=== PATIENT | female | born 1965 | race Caucasian/White ===

== ENCOUNTER 2018-09-13 08:36 | Emergency (ER) | payer OTHER ==
[~2018-09-13] VITALS: Ht 170.2 cm; Wt 59.0 kg
== END 2018-09-13 09:31 | disposition home or self-care (01) ==
LOC: ER 08:36
DX: J45.998 Other asthma (principal)

== ENCOUNTER 2019-01-18 09:31 | Emergency (ER) | payer OTHER ==
[~2019-01-18] VITALS: Ht 170.2 cm; Wt 63.5 kg
== END 2019-01-18 14:25 | disposition home or self-care (01) ==
LOC: ER 09:31
DX: R51 Headache (principal)

== ENCOUNTER 2019-08-02 07:15 | Emergency (ER) | payer OTHER ==
[~2019-08-02] VITALS: Ht 170.2 cm; Wt 63.5 kg
[2019-08-02] MEDS ORDERED: CELECOXIB100 MG PO (10:16)
[2019-08-02] MEDS ORDERED: TESSALON PERLE100 M1 PO (10:16)
== END 2019-08-02 10:23 ==
LOC: ER 07:15
DX: B34.8 Other viral infections of unspecified site (principal); M25.542 Pain in joints of left hand; M25.541 Pain in joints of right hand; I95.89 Other hypotension; R05 Cough

== ENCOUNTER 2020-07-10 13:36 | Outpatient (CLI) | payer OTHER ==
[~2020-07-10 13:36] MED LIST: CELECOXIB100 MG PO; TESSALON PERLE100 M1 PO
== END 2020-07-10 14:09 | disposition home or self-care (01) ==
LOC: MAMO-SONO 13:36
PROVIDERS: ATTEND Obstetrics & Gynecology Gynecology
DX: Z12.31 Encounter for screening mammogram for malignant neoplasm of breast (principal); N64.4 Mastodynia

== ENCOUNTER 2020-08-11 07:59 | Emergency (ER) | payer OTHER ==
[~2020-08-11] VITALS: Ht 167.6 cm; Wt 63.5 kg
[2020-08-11] MEDS ORDERED: KETO10TA2 PO (10:26)
== END 2020-08-11 12:04 | disposition home or self-care (01) ==
LOC: ER 07:59
DX: S62.317A Displaced fracture of base of fifth metacarpal bone, left hand, initial encounter for closed fracture (principal); X50.1XXA Overexertion from prolonged static or awkward postures, initial encounter; Y93.89 Activity, other specified; Y92.89 Other specified places as the place of occurrence of the external cause; Y99.8 Other external cause status

== ENCOUNTER 2020-08-18 12:01 | Outpatient (CLI) | payer OTHER ==
[~2020-08-18 12:01] MED LIST changes: +KETO10TA2 PO
== END 2020-08-18 12:05 | disposition home or self-care (01) ==
LOC: RAD 12:01
PROVIDERS: ATTEND Orthopaedic Surgery
DX: S92.352A Displaced fracture of fifth metatarsal bone, left foot, initial encounter for closed fracture (principal)

== ENCOUNTER 2020-09-11 06:56 | Outpatient (CLI) | payer OTHER | END 2020-09-11 15:00 | disposition home or self-care (01) | LOC: LAB 06:56 | PROVIDERS: ATTEND Orthopaedic Surgery | DX: E21.2 Other hyperparathyroidism (principal); E88.89 Other specified metabolic disorders; M81.8 Other osteoporosis without current pathological fracture; E56.1 Deficiency of vitamin K ==

== ENCOUNTER 2021-08-16 14:19 | Outpatient (CLI) | payer OTHER | END 2021-08-16 14:29 | disposition home or self-care (01) | LOC: NUCLEAR 14:19 | PROVIDERS: ATTEND Orthopaedic Surgery | DX: M81.0 Age-related osteoporosis without current pathological fracture (principal) ==

== ENCOUNTER 2021-11-07 15:09 | Outpatient (CLI) | payer OTHER | END 2021-11-07 15:18 | disposition home or self-care (01) | LOC: MAMO-SONO 15:09 | DX: N60.11 Diffuse cystic mastopathy of right breast (principal); Z12.31 Encounter for screening mammogram for malignant neoplasm of breast ==

== ENCOUNTER 2022-08-13 14:10 | Outpatient (CLI) | payer OTHER | END 2022-08-13 14:13 | disposition home or self-care (01) | LOC: MAMO-SONO 14:10 | DX: N64.4 Mastodynia (principal); Z12.31 Encounter for screening mammogram for malignant neoplasm of breast ==

== ENCOUNTER 2023-03-26 11:31 | Emergency (ER) | payer OTHER ==
[~2023-03-26] VITALS: Ht 170.2 cm; Wt 64.9 kg
== END 2023-03-26 14:43 | disposition home or self-care (01) ==
LOC: ER 11:31
DX: S00.83XA Contusion of other part of head, initial encounter (principal); W06.XXXA Fall from bed, initial encounter; Y93.84 Activity, sleeping; Y92.89 Other specified places as the place of occurrence of the external cause; Y99.8 Other external cause status; Z91.018 Allergy to other foods

== ENCOUNTER → 2023-04-16 | Outpatient (CLI) | payer OTHER | END | disposition home or self-care (01) | LOC: MAMO-SONO 14:37 | PROVIDERS: ATTEND Obstetrics & Gynecology Gynecology | DX: N63.0 Unspecified lump in unspecified breast (principal); N64.4 Mastodynia; Z12.31 Encounter for screening mammogram for malignant neoplasm of breast ==

== ENCOUNTER 2023-06-18 13:42 | Outpatient (CLI) | payer OTHER | END 2023-06-18 13:50 | disposition home or self-care (01) | LOC: RAD 13:42 | PROVIDERS: ATTEND Obstetrics & Gynecology Gynecology | DX: R05.9 Cough, unspecified (principal) ==

== ENCOUNTER 2023-11-03 12:53 | Outpatient (CLI) | payer OTHER | END 2023-11-03 12:55 | disposition home or self-care (01) | LOC: NUCLEAR 12:53 | PROVIDERS: ATTEND Obstetrics & Gynecology Gynecology | DX: Z13.820 Encounter for screening for osteoporosis (principal); M81.0 Age-related osteoporosis without current pathological fracture ==

== ENCOUNTER 2024-10-25 10:13 | Emergency (ER) | payer OTHER ==
[~2024-10-25] VITALS: Ht 170.2 cm; Wt 67.1 kg
[2024-10-25 10:41] VITALS: BP 138/76; O2SAT 98
[2024-10-25 13:03] LABS: HEMATOCRIT 38.1 % (36.0-45.00); MEAN CELL VOLUME 89.2 fL (80.00-100.00); MEAN CORPUSCULAR HEMOGLOBIN 30.5 pg (27.00-32.0); MEAN CORPUSCULAR HGB CONC 34.2 g/dl (32.0-36.0); PLATELET COUNT 447 K/uL (150-450); RED BLOOD COUNT 4.27 M/uL (4.00-6.00); RED CELL DISTRIBUTION WIDTH 14.8 % (11.5-14.5)
[2024-10-25 13:07] LABS: URINE APPEARANCE Clear; URINE BILIRRUBIN Negative (NEGATIVE); URINE BLOOD Negative; URINE COLOR Yellow; URINE GLUCOSE Negative (NEGATIVE); URINE KETONE Trace (NEGATIVE); URINE LEUKOCYTE Negative; URINE NITRATE Negative; URINE PROTEIN Negative (NEGATIVE); URINE UROBILINOGEN 0.2 E.U./dl
[2024-10-25 13:08] LABS: URINE RBC 2.5 uL (0.0-20.8)
[2024-10-25 13:11] LABS: URINE BACTERIA 1.2 uL (0.0-1933); URINE EPITHELIAL CELLS 0.1 uL (0.0-38.8); URINE WBC 0.6 uL (0.0-23.2)
[2024-10-25 13:27] LABS: CALCIUM 9.3 mg/dL (8.5-10.1); CREATININE SERUM 0.72 mg/dL (0.55-1.02); GFR 83.2; POTASSIUM 3.92 mEq/L (3.5-5.1)
== END 2024-10-25 14:01 | disposition home or self-care (01) ==
LOC: ER 10:15
PROVIDERS: General Practice
DX: M54.9 Dorsalgia, unspecified (principal); Z91.018 Allergy to other foods; K59.00 Constipation, unspecified

== ENCOUNTER 2025-10-06 13:46 | Outpatient (CLI) | payer OTHER | END 2025-10-06 14:06 | disposition home or self-care (01) | LOC: MAMO-SONO 13:46 | DX: N64.4 Mastodynia (principal); Z12.31 Encounter for screening mammogram for malignant neoplasm of breast ==

== ENCOUNTER 2025-11-16 10:24 | Outpatient (CLI) | payer OTHER | END 2025-11-16 10:25 | disposition home or self-care (01) | LOC: NUCLEAR 10:24 | DX: M81.0 Age-related osteoporosis without current pathological fracture (principal) ==